=== PATIENT | male | born 1985 | race Two or more races ===

== ENCOUNTER 2022-01-07 09:22 | Emergency (ER) | payer SELFPAY ==
[~2022-01-07] VITALS: Ht 190.5 cm; Wt 86.2 kg
[2022-01-07] MEDS ORDERED: IBUPROFEN 800 MG TABLET PO ONE (09:30)
[2022-01-07] MEDS ORDERED: IBUPROFEN 800 MG TABLET ONE (09:37)
--- NOTE | 2022-01-07 09:51 | NUR ---
Patient discharged to home in stable condition. Written and verbal after care instructions given. Patient verbalizes understanding of instructions. Stressed follow up or return to ER for worsening s/s.pt walks in steady gait. deneis any dizziness, nausea or any other complain.
== END 2022-01-07 09:51 | disposition home or self-care (01) ==
LOC: ER 09:22
DX: S09.90XA Unspecified injury of head, initial encounter (principal); S49.91XA Unspecified injury of right shoulder and upper arm, initial encounter; W20.1XXA Struck by object due to collapse of building, initial encounter; Y93.H3 Activity, building and construction; Y92.61 Building [any] under construction as the place of occurrence of the external cause; Y99.0 Civilian activity done for income or pay
CPT/HCPCS: A4663